=== PATIENT | female | born 2000 | race Two or more races ===

== ENCOUNTER 2020-08-04 19:21 | Emergency (ER) | payer OTHER ==
[~2020-08-04] VITALS: Ht 165.1 cm; Wt 59.0 kg
--- NOTE | 2020-08-04 19:30 | NUR ---
PT CAME TO THE ER FROM HOME C/O DEPRESSION AND SI W/ NO PLAN. PT AAOX4, VSS, RESPIRATIONS EVEN AND UNLABORED ON RA W/ NAD NOTED. PT CHANGED INTO GOWN, SUICIDE PRECAUTIONS IMPLEMENTED, SITTER AT BEDSIDE FOR SAFETY. PT CONNECTED TO THE MONITOR NAD POX
[2020-08-04 20:15] LABS: BILIRUBIN,URINE Negative (NEGATIVE); BLOOD, URINE Trace-intact Ery/uL (NEGATIVE); COLOR,URINE YELLOW (YELLOW); LEUKOCYTE ESTERASE ,URINE Negative (NEGATIVE); NITRITE, URINE Negative (NEGATIVE); PH,URINE 5.5 (5.0-8.0); PROTEIN,URINE Negative (NEGATIVE); UGLUCOSE Negative (NEGATIVE); UROBILINOGEN,URINE 0.2 EU/dL (0.2)
--- NOTE | 2020-08-04 20:22 | NUR ---
CALLED LAB FOR COVID SWAB
[2020-08-04 20:37] LABS: CALCIUM, SERUM 8.9 mg/dL (8.5-10.1); CARBON DIOXIDE 25 mmol/L (21-32); CHLORIDE 104 mmol/L (98-107); CREATININE 0.8 mg/dL (0.6-1.3); GLUCOSE 82 mg/dL (74-106); POTASSIUM 3.9 mmol/L (3.5-5.1); SODIUM SERUM 137 mmol/L (136-145); UREA NITROGEN, BLOOD 15 mg/dL (7-18)
[2020-08-04 20:39] LABS: BASOPHILS # (AUTO) 0.1 /CMM (0.0-0.2); BASOPHILS % (AUTO) 1.1 % (0.0-2.0); EOSINOPHILS % (AUTO) 2.5 % (0.0-6.0); HEMATOCRIT 42 % (33-45); HEMOGLOBIN 13.7 g/dL (11.5-14.8); LYMPHOCYTES # (AUTO) 2.2 /CMM (0.8-4.8); LYMPHOCYTES % (AUTO) 22.5 % (20.0-44.0); MEAN CORPUSCULAR HGB CONC 33 g/dl (31.0-36.0); MEAN CORPUSCULAR VOLUME 89 fL (82-100); MONOCYTES # (AUTO) 0.9 /CMM (0.1-1.30); MONOCYTES % (AUTO) 8.7 % (2.0-12.0); NEUTROPHILS # (AUTO) 6.4 /CMM (1.8-8.9); NEUTROPHILS % (AUTO) 65.2 % (43.0-81.0); PLATELET COUNT (AUTO) 313 /CMM (150-450); RED BLOOD CELL COUNT(AUTO) 4.66 MIL/uL (4.0-5.2); WHITE BLOOD COUNT (AUTO) 9.8 K/uL (4.3-11.0)
[2020-08-04 20:39] LABS: BACTERIA,URINE Rare /HPF (None Seen); SQUAMOUS EPITHELIAL CELL,UR Few /HPF (None Seen); WBC,URINE NONE SEEN /HPF (0-3)
[2020-08-04 20:51] LABS: ALANINE AMINOTRANSFERASE 16 U/L (12-78); ALBUMIN 3.7 g/dL (3.4-5.0); ALCOHOL, BLOOD < 3 mg/dL (0-0); ALKALINE PHOSPHATASE 78 U/L (46-116); ASPARTATE AMINOTRANSFERASE 13 U/L (15-37); BILIRUBIN,DIRECT 0.1 mg/dL (0.0-0.2); BILIRUBIN,TOTAL 0.3 mg/dL (0.2-1.0); TOTAL PROTEIN, SERUM 7.7 g/dL (6.4-8.2)
[2020-08-04 20:54] LABS: ACETAMINOPHEN < 2 ug/ml (10-30)
--- NOTE | 2020-08-04 21:00 | NUR ---
COVID SWAB SENT TO LAB
--- NOTE | 2020-08-04 23:22 | NUR ---
[place] Crisis Team called for eval.
--- NOTE | 2020-08-05 02:21 | NUR ---
Patient is resting comfortably in bed with eyes closed. Easily aroused. VSS
--- NOTE | 2020-08-05 03:56 | NUR ---
GLEN (PT'S MOM): [phone] PER MOM, PT CAN GO TO "[facility]"(30 DAY TREATMENT PROGRAM) OFFICE: [phone] DIRECT #(MANDA): [phone]
--- NOTE | 2020-08-05 04:35 | NUR ---
provided pt with sandwhich and water. kirk.
--- NOTE | 2020-08-05 06:27 | NUR ---
Pt remains asleep, vss. Provided with more blankets.
--- NOTE | 2020-08-05 07:30 | NUR ---
PATIENT A/OX4, BREATHING EVEN AND UNLABORED, NO SOB NOTED.
[2020-08-05 10:14] VITALS: BP 107/60
--- NOTE | 2020-08-05 10:18 | NUR ---
RECEIVED A CALL FROM [facility], SPOKE TO HENNA ([phone]) ACCEPTED BY DR. RODRIGUEZ WILL GO TO [address], BED # 222A FAXED CRISIS REPORT TO HENNA. Addendum: 08/05/20 at 1020 by [place]: [facility] PHONE # FOR REPORT [phone]
--- NOTE | 2020-08-05 10:29 | NUR ---
CALLED [facility] FOR TRANSPORT TO [facility]. ETA 40 MINUTES.
--- NOTE | 2020-08-05 11:10 | NUR ---
IGNACIO MCHUGH AT BEDSIDE.
--- NOTE | 2020-08-05 11:26 | NUR ---
REPORT GIVEN TO BANK RECONCILIATOR. PATIENT A/OX4, BREATHING EVEN AND UNLABORED, NO SOB NOTED. NEEDS ATTENDED. PATIENT IS WILLING TO GO [facility].
--- NOTE | 2020-08-05 11:29 | NUR ---
REPORT GIVEN TO NATHAN CALDWELL AT [facility].
--- NOTE | 2020-08-05 16:34 | NUR ---
Clinical Social Work Note Received notification from Michelle social work professor, who notified this marine underwriter is very upset that her daughter was placed at [facility]. Mother, Poncho [phone] says the patient did not say she wanted to strangle herself. Mother is in a lot of denial and reports.that patient has no history despite her being hospitalized in April 2020. Mother called [facility] and wants her to sign AMA but that they "will not let her". . This marine underwriter explained to her that the patient agreed to go there voluntarily and patient was not a minor. Mother is minimizing all her daughter's issues. Informed her mother that her daughter was not permitting staff to talk to her earlier. Gave the mother information regarding [facility] laws and regulations. Mother has this transfer professor's phone number. Provided information and confirmed patient went voluntarily to [facility]. Also suggested mother could have called with information regarding alternative accepting facility as this was not documented anywhere by staff. Mother alleges the patient was accepted at a private hospital in [place]. Also advised the mother that this marine underwriter had no control over what [facility] decides.
--- NOTE | 2020-08-05 16:57 | NUR ---
Late Entry: 4:30pm SW received a phone call from patients mother Melvin . Melvin expressed frustration to this SW regarding patients coordination of services. This SW notified SS Director Amanda Peterson, who stated she would follow-up with the mother.
== END 2020-08-05 11:31 ==
LOC: ER 19:24
DX: R45.851 Suicidal ideations (principal); F32.9 Major depressive disorder, single episode, unspecified; Z91.14 Patient's other noncompliance with medication regimen; Z20.828 Contact with and (suspected) exposure to other viral communicable diseases
CPT/HCPCS: 36415; 80048; 80076; 80299; 80307; 80320; 81001; 84702; 85025; 87426; 99285; C9803; G0480

== ENCOUNTER 2022-02-28 00:28 | Emergency (ER) | payer BC, OTHER ==
[~2022-02-28] VITALS: Ht 167.6 cm; Wt 61.2 kg
--- NOTE | 2022-02-28 01:29 | NUR ---
[employer] FROM [employer] EPISODE [employer] PLACED 5150 HOLD FOR DANGER TO HERSELF. PATIENT BELONGINGS TAKEN AND PLACED IN LOCKER. IN BED 10 IN GOWN AWAITING MD BAINS.
--- NOTE | 2022-02-28 01:30 | NUR ---
URINE COLLECTED AND SENT TO LAB
[2022-02-28 01:33] LABS: BASOPHILS # (AUTO) 0.1 K/uL (0.0-0.2); BASOPHILS % (AUTO) 0.7 % (0.0-2.0); EOSINOPHILS % (AUTO) 1.4 % (0.0-6.0); HEMATOCRIT 39 % (33-45); LYMPHOCYTES # (AUTO) 1.7 K/uL (0.8-4.8); LYMPHOCYTES % (AUTO) 16.5 % (20.0-44.0); MEAN CORPUSCULAR HGB CONC 33 g/dl (31.0-36.0); MEAN CORPUSCULAR VOLUME 87 fL (82-100); MONOCYTES # (AUTO) 0.7 K/uL (0.1-1.30); NEUTROPHILS # (AUTO) 7.7 K/uL (1.8-8.9); NEUTROPHILS % (AUTO) 74.4 % (43.0-81.0); PLATELET COUNT (AUTO) 337 K/uL (150-450); RED BLOOD CELL COUNT(AUTO) 4.49 MIL/uL (4.0-5.2); WHITE BLOOD COUNT (AUTO) 10.4 K/uL (4.3-11.0)
--- NOTE | 2022-02-28 01:35 | NUR ---
COVID SWAB DONE AND SENT TO LAB
[2022-02-28 01:47] LABS: CARBON DIOXIDE 29 mmol/L (21-32); CHLORIDE 105 mmol/L (98-107); CREATININE 0.8 mg/dL (0.6-1.3); GLUCOSE 116 mg/dL (74-106); POTASSIUM 3.6 mmol/L (3.5-5.1); SODIUM SERUM 140 mmol/L (136-145); UREA NITROGEN, BLOOD 17 mg/dL (7-18)
[2022-02-28 01:53] LABS: ACETAMINOPHEN < 2 ug/ml (10-30); ALANINE AMINOTRANSFERASE 22 U/L (12-78); ALBUMIN 3.8 g/dL (3.4-5.0); ALCOHOL, BLOOD < 3 mg/dL (0-0); ALKALINE PHOSPHATASE 89 U/L (46-116); ASPARTATE AMINOTRANSFERASE 16 U/L (15-37); BILIRUBIN,DIRECT 0.1 mg/dL (0.0-0.2); BILIRUBIN,TOTAL 0.4 mg/dL (0.2-1.0); TOTAL PROTEIN, SERUM 7.2 g/dL (6.4-8.2)
[2022-02-28 03:07] LABS: BILIRUBIN,URINE NEGATIVE (NEGATIVE); COLOR,URINE YELLOW (YELLOW); LEUKOCYTE ESTERASE ,URINE NEGATIVE (NEGATIVE); NITRITE, URINE NEGATIVE (NEGATIVE); PROTEIN,URINE NEGATIVE (NEGATIVE); UGLUCOSE NEGATIVE (NEGATIVE); UROBILINOGEN,URINE 0.2 EU/dL (0.2)
--- NOTE | 2022-02-28 04:28 | NUR ---
PAGED [employer] IGNACIO. SHE WILL EVALUATE PATIENT.
--- NOTE | 2022-02-28 05:39 | NUR ---
[facility] CRISIS TEAM AT PT'S BEDSIDE
[2022-02-28] MEDS ORDERED: LORAZEPAM 1 MG TABLET ONE (05:58)
[2022-02-28] MEDS ORDERED: LORAZEPAM 1 MG TABLET PO ONE (06:00)
--- NOTE | 2022-02-28 06:01 | NUR ---
Shaina leos in ED - 02/28/22 at 0606 by PATO Patient discharged to home in stable condition. Written and verbal after care instructions given. Patient verbalizes understanding of instruction. PT ambulatory with a steady gait. Belongings returned to pt.
[2022-02-28 06:12] VITALS: BP 125/81
--- NOTE | 2022-02-28 06:12 | NUR ---
Patient discharged to home in stable condition. Written and verbal after care instructions given. Patient verbalizes understanding of instruction. PT ambulatory with a steady gait. Belongings returned to pt.
== END 2022-02-28 06:12 | disposition home or self-care (01) ==
LOC: ER 00:30
DX: R46.89 Other symptoms and signs involving appearance and behavior (principal); F31.9 Bipolar disorder, unspecified; Z20.822 Contact with and (suspected) exposure to COVID-19
CPT/HCPCS: 36415; 80048; 80076; 80143; 80307; 80320; 81003; 85025; 87426; 99285; C9803; G0480